=== PATIENT | female | born 1955 | race American Indian/Alaskan Native ===

== ENCOUNTER 2018-04-14 12:07 | Emergency (ER) | payer MEDICARE ==
[2018-04-14] MEDS ORDERED: ANTIVERT PO ONE (12:55)
--- NOTE | 2018-04-14 13:02 | Emergency Department Report ---
HPI - General Chief Complaint: Dizziness Time Seen by Provider: 04/14/18 12:23 - HPI HPI: 62-year-old -[place] female presents to the emergency department, driven in by her daughter, complained of some dizziness and vertigo like symptoms, along with nausea and vomiting, that started about 5:15 AM this morning. The patient had told her daughter that she was feeling dizzy and/or a room spinning sensation about that time. The patient then called her daughter later this morning, around 10 AM, and told her that she was having nausea and vomiting. Her daughter came home and found her blood pressure to be slightly elevated and she took her home blood pressure medication. The patient's symptoms stopped upon presentation to the emergency department. She has a past medical history of previous CVA with right-sided residual weakness, hypertension and atrial fibrillation. She goes to the [facility] for primary care needs. She is on Eliquis for anticoagulation for the A-fib. ED Past Medical Hx - Past Medical History Previous Medical History?: Yes Hx Hypertension: Yes Hx CVA: Yes (2016, residual right sided weakness) Additional medical history: afib - Surgical History Past Surgical History?: Yes Additional Surgical History: hysterectomy - Social History Smoking Status: Never Smoker Substance Use Type: None - Medications Home Medications: Home Medications Medication Instructions Recorded Confirmed Last Taken Type Meclizine [Antivert] 25 mg PO TID PRN #20 tablet 04/14/18 Unknown Rx ED Review of Systems ROS: Stated complaint: HBP/DIZZY/VOMITING Other details as noted in HPI Constitutional: denies: chills, fever Eyes: denies: eye pain, vision change ENT: denies: ear pain, throat pain Respiratory: denies: cough, shortness of breath Cardiovascular: denies: chest pain, palpitations Gastrointestinal: nausea, vomiting Genitourinary: denies: dysuria, discharge Musculoskeletal: denies: back pain, arthralgia Skin: denies: rash, lesions Neurological: vertigo, other (dizziness). denies: headache Physical Exam - Physical Exam Vital Signs: Vital Signs 04/14/18 12:13 Temperature 97.6 F Pulse Rate 85 Respiratory 18 Rate Blood Pressure 138/80 O2 Sat by Pulse 100 Oximetry Physical Exam: GENERAL: The patient is well-developed well-nourished. HEENT: Normocephalic. Atraumatic. Patient has moist mucous membranes. EYES: Extraocular motions are intact. Pupils are equal and reactive to light bilaterally. No nystagmus. NECK: Supple. Trachea is midline. CHEST/LUNGS: Clear to auscultation. There is no respiratory distress noted. HEART/CARDIOVASCULAR: Regular. There is no tachycardia. There is no obvious murmur. ABDOMEN: Abdomen is soft, nontender. Patient has normal bowel sounds. There is no abdominal distention. SKIN: Skin is warm and dry. NEURO: The patient is awake, alert, and oriented. The patient is cooperative. The patient has no focal neurologic deficits. The patient has normal speech. There is mild chronic right-sided nasolabial fold creases. There is some right- sided upper and lower extremity weakness that is chronic and at baseline. MUSCULOSKELETAL: There is no tenderness or deformity. There is no evidence of acute injury. ED Course Vital Signs 04/14/18 12:13 Temperature 97.6 F Pulse Rate 85 Respiratory 18 Rate Blood Pressure 138/80 O2 Sat by Pulse 100 Oximetry ED Medical Decision Making - Lab Data Result diagrams: 04/14/18 13:01 04/14/18 13:01 - EKG Data -: EKG Interpreted by Ak - EKG Data When compared to previous EKG there are: previous EKG unavailable Interpretation: other (atrial fibrillation, rate of 87 bpm, Q waves to the septal leads) - Radiology Data Radiology results: report reviewed PROCEDURE: CT head without contrast. TECHNIQUE: Computerized tomography of the head was performed without contrast material. HISTORY: Dizziness. COMPARISON: No prior studies are available for comparison. FINDINGS: The ventricles are normal in size. There may be an old lacunar infarct in the left putamen. There may be minimal chronic ischemic white matter disease in the left gee radiata. The mcmahon matter and white matter otherwise appear normal. There are no mass lesions. There is no intracranial hemorrhage. The calvarium appears intact. The mastoid air cells and paranasal sinuses are clear as far as visualized. IMPRESSION: Normal study of the brain for age. Transcribed By: MRM Dictated By: DEMIAN PUCKETT MD Electronically Authenticated By: DEMIAN PUCKETT MD Signed Date/Time: 04/14/18 7190 - Medical Decision Making Patient presents to the emergency department with complaint of some vertigo and dizziness followed by nausea and vomiting, that started around 5 AM this morning and resolved about the time of presentation to the emergency department. Patient has some mild right-sided nasolabial fold paresis and some right-sided upper and lower show any weakness but this is from the patient's previous stroke and with the patient and her daughter said that she is at her baseline status for this. CT scan of the head did not show any acute bleed, shift, mass, ischemia or any other acute process. Labs were unremarkable including a CBC, CMP, troponin and TSH. EKG did not show any signs of ST elevation CO, ischemia or any significant dysrhythmia. She was given a dose of Antivert. Patient was reevaluated multiple times of hours and there has been no return of her symptoms. Patient appears safe for discharge home at this time. Prior to discharge the patient was seen ambulatory and appears and feels stable. She has good follow-up with primary care and return to the ER with any worsening of her symptoms or any acute distress. - Differential Diagnosis TIA, Dysrythmia, Electrolyte abnormalities, BPPV Critical Care Time: No Critical care attestation.: If time is entered above; I have spent that time in minutes in the direct care of this critically ill patient, excluding procedure time. ED Disposition Clinical Impression: Vertigo, Dizziness Disposition: DC-01 TO HOME OR SELFCARE Is pt being admited?: No Condition: Stable Instructions: Vertigo (ED), Dizziness (ED) Additional Instructions: Please follow-up with your primary care physician in the next few days. Return to the emergency Department with any worsening of your symptoms or any acute distress. Prescriptions: Meclizine [Antivert] 25 mg PO TID PRN #20 tablet PRN Reason: Vertigo Referrals: PRIMARY CARE, [Primary Care Provider] - 2-3 Days Time of Disposition: 16:59
[2018-04-14 13:38] LABS: Basophils % (Auto) 0.2 % (0.0-1.8); Eosinophils # (Auto) 0.2 K/mm3 (0.0-0.4); Hematocrit 38.1 % (30.3-42.9); Hemoglobin 12.6 gm/dl (10.1-14.3); Lymphocytes # (Auto) 1.2 K/mm3 (1.2-5.4); Lymphocytes % (Auto) 16.2 % (13.4-35.0); Mean Corpuscular HGB Conc 33 % (30-34); Mean Corpuscular Volume 94 fl (79-97); Monocytes # (Auto) 0.4 K/mm3 (0.0-0.8); Monocytes % (Auto) 5.7 % (0.0-7.3); Platelet Count 199 K/mm3 (140-440); Red Blood Count 4.04 M/mm3 (3.65-5.03); Red Cell Distribution Width 14.3 % (13.2-15.2)
[2018-04-14 14:00] LABS: Alanine Aminotransferase 9 units/L (7-56); Albumin 4.1 g/dL (3.9-5); BUN/Creatinine Ratio 18; Blood Urea Nitrogen 16 mg/dL (7-17); Calcium 10.9 mg/dL (8.4-10.2); Hemolysis Index 5
--- NOTE | 2018-04-14 16:28 | Cat Scan Report ---
FINAL REPORT PROCEDURE: CT head without contrast. TECHNIQUE: Computerized tomography of the head was performed without contrast material. HISTORY: Dizziness. COMPARISON: No prior studies are available for comparison. FINDINGS: The ventricles are normal in size. There may be an old lacunar infarct in the left putamen. There may be minimal chronic ischemic white matter disease in the left gee radiata. The mcmahon matter and whi te matter otherwise appear normal. There are no mass lesions. There is no intracranial hemorrhage. Th e calvarium appears intact. The mastoid air cells and paranasal sinuses are clear as far as visualize d. IMPRESSION: Normal study of the brain for age.
[2018-04-14 17:23] VITALS: BP 128/86
== END 2018-04-14 17:23 | disposition home or self-care (01) ==
LOC: ED 12:07
DX: R42 Dizziness and giddiness (principal); R11.2 Nausea with vomiting, unspecified; I10 Essential (primary) hypertension; Z86.73 Personal history of transient ischemic attack (TIA), and cerebral infarction without residual deficits; I48.91 Unspecified atrial fibrillation; Z90.710 Acquired absence of both cervix and uterus
CPT/HCPCS: 36415; 70450; 80053; 84443; 84484; 85025; 93005; 93010